=== PATIENT | female | born 1945 | race Caucasian/White ===

== ENCOUNTER 2022-04-16 01:13 | Inpatient (IN) | payer MEDICARE, OTHER ==
[~2022-04-16] VITALS: Ht 167.6 cm; Wt 62.6 kg
--- NOTE | 2022-04-16 01:22 | NUR ---
Patient BIB [facility] ambulance unit 54 from [facility] ER on a 5150 hold for GD/DTS. pt to be medically cleared. pt is in room 5.
[2022-04-16] MEDS ORDERED: ESTR1PAT7 TD (01:31)
[2022-04-16] MEDS ORDERED: LEVO125T8 PO (01:31)
[2022-04-16] MEDS ORDERED: AMLO-212 PO (01:31)
[2022-04-16] MEDS ORDERED: METO25TA6 PO (01:31)
[2022-04-16] MEDS ORDERED: ACET-2154 PO (01:31)
[2022-04-16] MEDS ORDERED: POLY17PO4 PO (01:31)
[2022-04-16] MEDS ORDERED: CETI-90 PO (01:31)
[2022-04-16] MEDS ORDERED: ZALE10CA PO (01:31)
[2022-04-16] MEDS ORDERED: LACT1CAP69 PO (01:31)
[2022-04-16] MEDS ORDERED: MULT-619 PO (01:31)
[2022-04-16] MEDS ORDERED: QUET25TA PO (01:31)
[2022-04-16] MEDS ORDERED: MAG355OR18 PO (01:31)
[2022-04-16] MEDS ORDERED: LISI20TA30 PO (01:31)
[2022-04-16] MEDS ORDERED: ARIP5TAB10 PO (01:31)
[2022-04-16] MEDS ORDERED: ONDA4TAB11 PO (01:31)
--- NOTE | 2022-04-16 01:39 | NUR ---
Dr. Li in room for ROLA.
--- NOTE | 2022-04-16 01:40 | NUR ---
Medically cleared by Dr Li.
[2022-04-16] MEDS ORDERED: POTASSIUM BICARBONATE/CIT AC 25 MEQ TABLET.EFF PO ONE (01:45)
[2022-04-16] MEDS ORDERED: POTASSIUM BICARBONATE/CIT AC 25 MEQ TABLET.EFF ONE (01:49)
--- NOTE | 2022-04-16 02:00 | NUR ---
Report given to JEREMI Calloway U.
--- NOTE | 2022-04-16 02:50 | NUR ---
Transfered to MHU via wheelchair with no distress noted.
[2022-04-16 03:00] VITALS: BP 136/76
--- NOTE | 2022-04-16 03:00 | NUR ---
ADMITTED PATIENT ALERT X 2 TO 3, UNDER THE CARE OF DR RYDER AND DR. GRANT. PATIENT ON 72 HOURS HOLD FOR GD/DTS.. PATIENT WAS BROUGHT TO [place] BY FOR EVAL DUE PATIENT WANDERS AWAY FROM HOME FOR HOURS, BELIGIRANT WITH OTHERS AND HAS NOT SLEPT FOR SEVERAL NIGHTS, IS FEARFUL PATIENT WILL HARM HERSELF. DURING INTERVIEW PATIENT COOPERATIVE, CONTINENT, AMBULATORY, SKIN CLEAR. CONT TO MONITOR.
[2022-04-16] MEDS ORDERED: LORAZEPAM 0.5 MG TABLET PO PRN (03:45)
[2022-04-16] MEDS ORDERED: BLOOD SUGAR DIAGNOSTIC 1 EACH STRIP VI ONE (03:45)
[2022-04-16] MEDS ORDERED: MAGNESIUM HYDROXIDE 30 ML LIQUID UDC PO PRN (03:45)
[2022-04-16] MEDS ORDERED: MAG HYDROX/AL HYDROX/SIMETH 30 ML LIQUID UDC PO PRN ×2 (03:45→16:30)
--- NOTE | 2022-04-16 06:33 | NUR ---
Patient given patients right handbook and advisement at bedside. Paged suction drum drier operator Dr. Jerome to reconcile Meds, given instruction that AM MD will do the reconcillliation.
[2022-04-16 08:00] VITALS: BP 148/66
--- NOTE | 2022-04-16 15:07 | NUR ---
GPS: Nursing Notes: Thought Disorder: Patient is awake and responding to her name, believes that her is trying to get rid of her, believes that there is nothing wrong with her, stated "I hate my doctor that he recommended a shock therapy....I am not a bipolar..", intrusive at times, getting into the nursing station without permission, gets easily irritable when redirected, fast and clear speech, argumentative at times, unable to formulate a viable plan for self care, continue to monitor for safety, continue with treatment plan.
[2022-04-16 16:00] VITALS: BP 166/70
[2022-04-16] MEDS ORDERED: MIRALAX 17 GM POWD.PACK PO PRN (16:30)
[2022-04-16] MEDS: LISINOPRIL 20 MG TABLET PO SCH (16:53)
[2022-04-16] MEDS: AMLODIPINE 5 MG TABLET PO SCH (16:53)
[2022-04-16] MEDS: METOPROLOL TARTRATE 25 MG TABLET PO SCH (16:54)
[2022-04-16] MEDS: DIVALPROEX 250 MG TABLET.DR PO SCH (16:54)
[2022-04-16 20:02] VITALS: BP 127/59
[2022-04-16] MEDS: LORAZEPAM 1 MG TABLET PO PRN (20:57)
[2022-04-16] MEDS: QUETIAPINE FUMARATE 25 MG TABLET PO SCH (20:57)
[2022-04-17] MEDS: ZOLPIDEM 5 MG TABLET PO PRN (01:21)
[2022-04-17 07:30] VITALS: BP 156/71
[2022-04-17 08:11] LABS: THYROID STIMULATING HORMONE 2.244 mIU/mL (0.358-3.740)
[2022-04-17 08:13] LABS: HEMATOCRIT 34.9 % (31.2-41.9); MEAN CORPUSCULAR HEMOGLOBIN 31.2 uug (24.7-32.8); MEAN CORPUSCULAR VOLUME 91.6 fL (75.5-95.3); PLATELET COUNT (AUTO) 375 K/uL (179-408)
[2022-04-17 08:15] LABS: MAGNESIUM 1.6 mg/dL (1.8-2.4); PHOSPHOROUS 4.3 mg/dL (2.5-4.9)
[2022-04-17] MEDS: DIVALPROEX 250 MG TABLET.DR PO SCH ×2 (08:41→16:18)
[2022-04-17] MEDS: LEVOTHYROXINE SODIUM 125 MCG TABLET PO SCH (08:41)
[2022-04-17] MEDS: AMLODIPINE 5 MG TABLET PO SCH ×2 (08:42→22:21)
[2022-04-17 08:43] LABS: BILIRUBIN,TOTAL 0.3 mg/dL (0.2-1.0); CREATININE 0.8 mg/dL (0.6-1.3); POTASSIUM 3.7 mmol/L (3.5-5.1); TOTAL PROTEIN, SERUM 6.1 g/dL (6.4-8.2)
[2022-04-17] MEDS: LISINOPRIL 20 MG TABLET PO SCH (08:43)
[2022-04-17] MEDS: METOPROLOL TARTRATE 25 MG TABLET PO SCH ×2 (08:46→16:18)
[2022-04-17] MEDS: ACIDOPHILUS/BULGARICUS CHEW TAB PO SCH (08:51)
[2022-04-17] MEDS: MULTIVIT, IRON, MIN NO. 8, FA TABLET PO SCH (08:51)
[2022-04-17] MEDS ORDERED: CETIRIZINE HCL 10 MG TABLET PO PRN (09:00)
[2022-04-17] MEDS ORDERED: MAGNESIUM OXIDE 400 MG TABLET PO ONE (10:00)
[2022-04-17 16:00] VITALS: BP 156/77
[2022-04-17] MEDS: LORAZEPAM 1 MG TABLET PO PRN (16:18)
--- NOTE | 2022-04-17 16:19 | NUR ---
The patient has been intrusive, unaware of physical boundaries with staff and constantly touching other patients. Continuing to redirect and reorient the patient to the reality of the situation. B/p is being monitored and treated as needed. Safety stratiges are in place. Unit rules and appropriate behavior is reinforced.
[2022-04-17 20:03] VITALS: BP 162/91
[2022-04-17] MEDS: QUETIAPINE FUMARATE 25 MG TABLET PO SCH (20:22)
[2022-04-18] MEDS: LEVOTHYROXINE SODIUM 125 MCG TABLET PO SCH (06:12)
[2022-04-18 07:30] VITALS: BP 153/108
[2022-04-18] MEDS: DIVALPROEX 250 MG TABLET.DR PO SCH ×2 (09:36→18:26)
[2022-04-18] MEDS: AMLODIPINE 5 MG TABLET PO SCH ×2 (09:36→20:57)
[2022-04-18] MEDS: LISINOPRIL 20 MG TABLET PO SCH (09:38)
[2022-04-18] MEDS: METOPROLOL TARTRATE 25 MG TABLET PO SCH ×2 (09:38→18:27)
[2022-04-18] MEDS: ACIDOPHILUS/BULGARICUS CHEW TAB PO SCH (09:49)
[2022-04-18] MEDS: MULTIVIT, IRON, MIN NO. 8, FA TABLET PO SCH (09:49)
[2022-04-18] MEDS: PROTEIN SUPPLEMENT (PROSTAT) 30 ML LIQUID PO SCH (10:30)
--- NOTE | 2022-04-18 12:10 | NUR ---
NOLVIA Family Contact: NOLVIA spoke with pt's , Dash [phone] in person during visitation hours regarding pt's treatment and discharge plan. Dash stated he is grateful for the teams help with pt's treatment and discussed pt's confirmed discharge plan to return home upon discharge under Dash's care.
--- NOTE | 2022-04-18 12:16 | NUR ---
NOLVIA Family Contact: NOLVIA spoke with pt's and DPDash MEZA [phone] in person who stated that pt will discharge home with him located at [address] [place] [address] ([phone]) as long as pt's psychiatrist, Dr. Maria clears the pt to continue care at home upon discharge. Dash stated he is also agreeable for pt to continue care at a [place] [facility] facility if Dr. Maria recommends it for continuation of care. Dash is aware and agreeable with the Doctor recommended treatment plan.
[2022-04-18] MEDS: ENSURE ENLIVE (VAN) 240 ML LIQUID PO SCH (12:43)
--- NOTE | 2022-04-18 13:06 | NUR ---
Gps/Tank Calibrator- Compliant with her routine am meds. conversant, needy , and wants request to be executed right away. came in to visit, but was able to stay only 30 minutes. Patient kept requesting to have patio door opened for her .
--- NOTE | 2022-04-18 15:27 | NUR ---
Gps/Sales Promotion Representative- Dr Luna (Neuro) was called , to follow up on a consult that was done 2 days ago, will see patient tomorrow .
[2022-04-18 16:00] VITALS: BP 171/70
--- NOTE | 2022-04-18 16:00 | NUR ---
Gps/Block Mechanic- Patient making multiple request, while standing by the Nurses station, patient urinated , on the floor claimed it was accident , she just woke up. Patient requested to have another shower, does not remember showering this am.
--- NOTE | 2022-04-18 16:22 | NUR ---
NOLVIA Initial Discharge Note: Pt currently resides at home with her , Dsah [phone] located at [address] [place] [address] ([phone]). Dash stated if the pt's MD clears the pt to continue care at home upon discharge, Dash will provide transportation and help take care of the pt with a sprinkler inspector as well. Dash stated if recommends a alf facility, Dash is agreeable with that plan as well. NOLVIA will continue to work with pt, family and MD to ensure a safe and proper discharge plan.
--- NOTE | 2022-04-18 16:24 | NUR ---
Firearms Report: Gi Technician completed and submitted a [employer] firearms report for 5150 a danger to herself and grave disability certifications. A copy of report has been placed in patient chart.
[2022-04-18 20:29] VITALS: BP 170/80
[2022-04-18] MEDS: QUETIAPINE FUMARATE 100 MG TABLET PO SCH (20:57)
[2022-04-18] MEDS ORDERED: QUETIAPINE FUMARATE 25 MG TABLET PO SCH (21:00)
[2022-04-18] MEDS: ZOLPIDEM 5 MG TABLET PO PRN (21:50)
--- NOTE | 2022-04-19 04:08 | NUR ---
Patient alert oriented, stayed in her room most of the evening, cooperative with med regimen and care, patient socialized and pleasant to staff and other patient, complain of inability to sleep, given sleeping meds as ordered with effective results, episode of elevated BP but asymptomatic, no nausea no vomiting, no headache/dizzines, will recheck bp again, cont to monitor.
[2022-04-19] MEDS: LEVOTHYROXINE SODIUM 125 MCG TABLET PO SCH (06:04)
[2022-04-19 07:30] VITALS: BP 136/76
[2022-04-19] MEDS: PROTEIN SUPPLEMENT (PROSTAT) 30 ML LIQUID PO SCH (08:00)
[2022-04-19] MEDS: MULTIVIT, IRON, MIN NO. 8, FA TABLET PO SCH (08:39)
[2022-04-19] MEDS: METOPROLOL TARTRATE 25 MG TABLET PO SCH ×2 (08:40→16:36)
[2022-04-19] MEDS: AMLODIPINE 5 MG TABLET PO SCH ×2 (08:41→20:08)
[2022-04-19] MEDS: LISINOPRIL 20 MG TABLET PO SCH (08:42)
[2022-04-19] MEDS: ENSURE ENLIVE (VAN) 240 ML LIQUID PO SCH (08:43)
[2022-04-19] MEDS: DIVALPROEX 250 MG TABLET.DR PO SCH ×2 (08:43→16:35)
[2022-04-19] MEDS: ACIDOPHILUS/BULGARICUS CHEW TAB PO SCH (08:44)
--- NOTE | 2022-04-19 15:46 | NUR ---
Gps/Liquified Natural Gas Specialist- Had been in and out of her group tx. Gets needy, demanding needs. Patient was noted in the shower room all naked was preparing self to take a shower again , pt. was reminded she already had shower this am, patient claimed can take shower anytime. Setting limit provided .
[2022-04-19 16:00] VITALS: BP 140/70
--- NOTE | 2022-04-19 18:00 | NUR ---
Gps/Ceramic Designer- Called Dash() left message, informed him of the Court hearing scheduled for friday with the possibility of discharge
[2022-04-19 19:58] VITALS: BP 167/57
[2022-04-19] MEDS: QUETIAPINE FUMARATE 100 MG TABLET PO SCH (20:08)
[2022-04-20] MEDS: LEVOTHYROXINE SODIUM 125 MCG TABLET PO SCH (06:04)
[2022-04-20] MEDS: PROTEIN SUPPLEMENT (PROSTAT) 30 ML LIQUID PO SCH (08:00)
[2022-04-20] MEDS: DIVALPROEX 250 MG TABLET.DR PO SCH ×2 (08:05→16:31)
[2022-04-20] MEDS: MULTIVIT, IRON, MIN NO. 8, FA TABLET PO SCH (08:05)
[2022-04-20] MEDS: ACIDOPHILUS/BULGARICUS CHEW TAB PO SCH (08:05)
[2022-04-20] MEDS: ENSURE ENLIVE (VAN) 240 ML LIQUID PO SCH (08:06)
[2022-04-20] MEDS: METOPROLOL TARTRATE 25 MG TABLET PO SCH ×2 (08:06→16:31)
[2022-04-20] MEDS: AMLODIPINE 5 MG TABLET PO SCH ×2 (08:07→20:03)
[2022-04-20] MEDS: LISINOPRIL 20 MG TABLET PO SCH (08:07)
[2022-04-20 08:13] VITALS: BP 138/51
[2022-04-20 08:30] LABS: HEMATOCRIT 38.2 % (31.2-41.9); MEAN CORPUSCULAR HEMOGLOBIN 30.6 uug (24.7-32.8); MEAN CORPUSCULAR VOLUME 91.1 fL (75.5-95.3); PLATELET COUNT (AUTO) 322 K/uL (179-408)
[2022-04-20 08:46] LABS: MAGNESIUM 1.8 mg/dL (1.8-2.4); PHOSPHOROUS 4.3 mg/dL (2.5-4.9); POTASSIUM 3.9 mmol/L (3.5-5.1)
--- NOTE | 2022-04-20 15:39 | NUR ---
Gps/It Corporate Recruiter- Had been compliant with her routine medications, forgetful, redirected from time to time, gets intrusive , interacting with her peers .Participated in her group tx.
[2022-04-20 16:35] VITALS: BP 122/61
[2022-04-20 20:00] VITALS: BP 146/82
[2022-04-20] MEDS: QUETIAPINE FUMARATE 100 MG TABLET PO SCH (20:02)
[2022-04-20] MEDS: ACETAMINOPHEN 325 MG TABLET PO PRN (21:55)
[2022-04-20] MEDS: LORAZEPAM 1 MG TABLET PO PRN (21:55)
[2022-04-21] MEDS: LEVOTHYROXINE SODIUM 125 MCG TABLET PO SCH (06:25)
--- NOTE | 2022-04-21 06:27 | NUR ---
Patient continues to be intrusive and overly touchy with peers. Holding their hands and in their business. Inappropriate by telling everyone , including this engineering writer " I love you " after each conversation. The patient is forgetful and has poor situational awareness. Total sleep hours were 6.15 . Safety stratiges are in place at this time. Reorientation provided often.
[2022-04-21 07:30] VITALS: BP 115/62
[2022-04-21] MEDS: PROTEIN SUPPLEMENT (PROSTAT) 30 ML LIQUID PO SCH (08:00)
[2022-04-21] MEDS: ACIDOPHILUS/BULGARICUS CHEW TAB PO SCH (08:22)
[2022-04-21] MEDS: MULTIVIT, IRON, MIN NO. 8, FA TABLET PO SCH (08:22)
[2022-04-21] MEDS: DIVALPROEX 250 MG TABLET.DR PO SCH ×2 (08:23→17:04)
[2022-04-21] MEDS: LISINOPRIL 20 MG TABLET PO SCH (08:23)
[2022-04-21] MEDS: AMLODIPINE 5 MG TABLET PO SCH ×2 (08:24→20:53)
[2022-04-21] MEDS: ENSURE ENLIVE (VAN) 240 ML LIQUID PO SCH (08:25)
[2022-04-21] MEDS: METOPROLOL TARTRATE 25 MG TABLET PO SCH ×2 (08:25→17:05)
[2022-04-21 10:20] LABS: HEMATOCRIT 36.1 % (31.2-41.9); MEAN CORPUSCULAR VOLUME 92.4 fL (75.5-95.3); PLATELET COUNT (AUTO) 294 K/uL (179-408)
[2022-04-21 10:23] LABS: *RHEUMATOID FACTOR SCREEN NEGATIVE (NEGATIVE)
[2022-04-21 11:50] LABS: ALANINE AMINOTRANSFERASE 13 U/L (14-59); ALKALINE PHOSPHATASE 51 U/L (50-136); ASPARTATE AMINOTRANSFERASE < 5 U/L (15-37); BILIRUBIN,TOTAL 0.4 mg/dL (0.2-1.0); CARBON DIOXIDE 31 mmol/L (21-32); CHLORIDE 104 mmol/L (98-107); CREATININE 0.9 mg/dL (0.6-1.3); GLUCOSE 123 mg/dL (74-106); LACTATE DEHYDROGENASE 147 U/L (81-234); POTASSIUM 3.7 mmol/L (3.5-5.1); TOTAL PROTEIN, SERUM 6.3 g/dL (6.4-8.2); UREA NITROGEN, BLOOD 18 mg/dL (7-18)
[2022-04-21] MEDS: ACETAMINOPHEN 325 MG TABLET PO PRN ×2 (14:38→21:32)
--- NOTE | 2022-04-21 15:34 | NUR ---
Gps/Corrections Specialist- Urine specimen collected , set to lab.
[2022-04-21 16:00] VITALS: BP 161/63
[2022-04-21 16:17] LABS: *BILIRUBIN,URIN NEGATIVE (NEGATIVE); *BLOOD, URINE NEGATIVE (NEGATIVE); *CLARITY,URINE CLEAR (CLEAR); *COLOR,URINE YELLOW (YELLOW); *KETONES,URINE NEGATIVE (NEGATIVE); *UROBILINOGEN,URINE 0.2 E.U./dl (NORMAL); LEUKOCYTE ESTERASE ,URINE NEGATIVE (NEGATIVE); NITRITE, URINE NEGATIVE (NEGATIVE); UGLUCOSE NEGATIVE (NEGATIVE)
--- NOTE | 2022-04-21 16:49 | NUR ---
Gps/Office Machine Servicer- Anali from [facility] came in to see patient, per Husbands' request to give her communion , was able to stay 10 minutes ,prayed with patient.
[2022-04-21 20:17] VITALS: BP 165/77
[2022-04-21] MEDS: QUETIAPINE FUMARATE 100 MG TABLET PO SCH (20:54)
[2022-04-21] MEDS: LORAZEPAM 1 MG TABLET PO PRN (21:32)
[2022-04-22] MEDS: LEVOTHYROXINE SODIUM 125 MCG TABLET PO SCH (06:23)
--- NOTE | 2022-04-22 06:24 | NUR ---
Patient slept 7.15 hours. At the start of the shift, the patient continued to be intrusive with the other patients. [place] touchy and unaware of personal boundaries. When asked not to touch the other patients, she would become angry and condescending. Labile mood noted. Safety Stratiges in place . Patient is forgetful and often forgets the situation of being here in the hospital and why. Reorientation provided when needed.
[2022-04-22 07:46] VITALS: BP 160/73
[2022-04-22 08:06] LABS: *IMMUNOGLOBULIN G, SERUM 712 mg/dL (586-1602); IMMUNOGLOBULIN A, SERUM 94 mg/dL (64-422); IMMUNOGLOBULIN M, SERUM 71 mg/dL (26-217)
[2022-04-22] MEDS: MULTIVIT, IRON, MIN NO. 8, FA TABLET PO SCH (08:48)
[2022-04-22] MEDS: AMLODIPINE 5 MG TABLET PO SCH ×2 (08:48→20:51)
[2022-04-22] MEDS: DIVALPROEX 250 MG TABLET.DR PO SCH ×2 (08:48→16:46)
[2022-04-22] MEDS: LISINOPRIL 20 MG TABLET PO SCH (08:49)
[2022-04-22] MEDS: METOPROLOL TARTRATE 25 MG TABLET PO SCH ×2 (08:49→16:47)
[2022-04-22] MEDS: ACIDOPHILUS/BULGARICUS CHEW TAB PO SCH (08:49)
[2022-04-22] MEDS: ACETAMINOPHEN 325 MG TABLET PO PRN (08:58)
[2022-04-22] MEDS: PROTEIN SUPPLEMENT (PROSTAT) 30 ML LIQUID PO SCH (08:59)
[2022-04-22] MEDS: ENSURE ENLIVE (VAN) 240 ML LIQUID PO SCH (08:59)
--- NOTE | 2022-04-22 10:20 | NUR ---
NOLVIA Family Contact: NOLVIA contacted pt's , Dash [phone] and left a voicemail for a call back regarding pt's hearing today at 12:30pm. NOLVIA stated that pt may be released from her hold today and ready for discharge per pt's psychiatrist, Dr. Maria. Per this NOLVIA's discussion with Dash last week, pt will return home with her under his care located at [address] [place] [address] ([phone]).
--- NOTE | 2022-04-22 11:00 | NUR ---
14 day hold [facility] done ,on hold for GD.
[2022-04-22 15:06] LABS: A/G RATIO 1.1 (0.7-1.7); ALPHA-1-GLOBULIN 0.3 g/dL (0.0-0.4); ALPHA-2-GLOBULIN 0.9 g/dL (0.4-1.0); GAMMA GLOBULIN 0.7 g/dL (0.4-1.8); GLOBULIN, TOTAL 2.8 g/dL (2.2-3.9); M-SPIKE Not Observed g/dL (Not Observed)
[2022-04-22 16:24] VITALS: BP 165/71
[2022-04-22 19:57] VITALS: BP 145/66
[2022-04-22] MEDS: LORAZEPAM 1 MG TABLET PO PRN (20:51)
[2022-04-22] MEDS: QUETIAPINE FUMARATE 100 MG TABLET PO SCH (20:52)
[2022-04-23] MEDS: LEVOTHYROXINE SODIUM 125 MCG TABLET PO SCH (06:16)
--- NOTE | 2022-04-23 06:17 | NUR ---
Received patient in the day room at the start of the shift, socializing , speech tangental. As the night went on, the patient became more confused and forgetful . A few times in the night , the patient got up completely disoriented and soaked in urine. Reorientation and reassurance provided. Safety Stratiges are in place.
[2022-04-23 07:30] VITALS: BP_SYST 102; BP_SYST 161; BP_DIAS 66; BP_DIAS 67
[2022-04-23] MEDS: DIVALPROEX 250 MG TABLET.DR PO SCH ×2 (08:32→17:31)
[2022-04-23] MEDS: ACIDOPHILUS/BULGARICUS CHEW TAB PO SCH (08:32)
[2022-04-23] MEDS: METOPROLOL TARTRATE 25 MG TABLET PO SCH ×2 (08:34→17:33)
[2022-04-23] MEDS: AMLODIPINE 5 MG TABLET PO SCH ×2 (08:34→20:56)
[2022-04-23] MEDS: MULTIVIT, IRON, MIN NO. 8, FA TABLET PO SCH (08:34)
[2022-04-23] MEDS: LISINOPRIL 20 MG TABLET PO SCH (08:35)
[2022-04-23] MEDS: ENSURE ENLIVE (VAN) 240 ML LIQUID PO SCH (08:35)
[2022-04-23] MEDS: PROTEIN SUPPLEMENT (PROSTAT) 30 ML LIQUID PO SCH (08:35)
[2022-04-23 11:06] LABS: *ANTI-SCLERODERMA-70 AB <0.2 AI (0.0-0.9); *SJOGREN'S ANTI-SS-A <0.2 AI (0.0-0.9); *SJOGREN'S ANTI-SS-B <0.2 AI (0.0-0.9); *SMITH ANTIBODIES <0.2 AI (0.0-0.9); ANTI-DNA(DS) AB, QN <1 IU/mL (0-9)
[2022-04-23] MEDS: ACETAMINOPHEN 325 MG TABLET PO PRN (11:09)
--- NOTE | 2022-04-23 15:36 | NUR ---
Received patient sleeping in her room. A/O X 2 to person. Pt. is intrusive "I'll take care of this patient" "What's his problem? Why is he upset?" Pt. is confused, disorganized, compliant with medications. Pt. is encourage to verbalize concerns. Fall and safety precautions implemented.
[2022-04-23 15:48] VITALS: BP 144/65
--- NOTE | 2022-04-23 20:30 | NUR ---
RECEIVED PATIENT IN HER ROOM SITTING IN HER BED, SHE IS NOTED A/O X 3 ABLE TO VERBALIZED HER FEELINGS. PATIENT IS CALM AND PLEASANT UPON APPROACHED, PATIENT IS AWARE OF HER INCOMING DISCHARGED FOR TOMORROW MORNING, SHE WILL BE DISCHARGE TO HOME WITH HER . SHE IS NOTED GOAL ORIENTED. PATIENT IN NO DISTRESS. HER V/S ARE STABLE, SHE IS REASSURED FOR HER SAFETY. SAFETY AND FALL PRECAUTIONS ARE IN PLACE. WILL CONTINUE TO MONITOR.
[2022-04-23] MEDS: QUETIAPINE FUMARATE 100 MG TABLET PO SCH (20:56)
[2022-04-23 20:57] VITALS: BP 142/68
[2022-04-24] MEDS: LEVOTHYROXINE SODIUM 125 MCG TABLET PO SCH (06:48)
[2022-04-24 07:55] VITALS: BP 149/67
[2022-04-24] MEDS: METOPROLOL TARTRATE 25 MG TABLET PO SCH (09:02)
[2022-04-24] MEDS: LISINOPRIL 20 MG TABLET PO SCH (09:02)
[2022-04-24] MEDS: DIVALPROEX 250 MG TABLET.DR PO SCH (09:02)
[2022-04-24 09:03] VITALS: BP 149/67
[2022-04-24] MEDS: AMLODIPINE 5 MG TABLET PO SCH (09:03)
[2022-04-24] MEDS: MULTIVIT, IRON, MIN NO. 8, FA TABLET PO SCH (09:03)
[2022-04-24] MEDS: ACIDOPHILUS/BULGARICUS CHEW TAB PO SCH (09:03)
[2022-04-24] MEDS: ENSURE ENLIVE (VAN) 240 ML LIQUID PO SCH (09:04)
[2022-04-24] MEDS: PROTEIN SUPPLEMENT (PROSTAT) 30 ML LIQUID PO SCH (09:04)
--- NOTE | 2022-04-24 11:00 | NUR ---
Received patient sleeping in her room. A/O X 2 to person. Pt. is intrusive, forgetful, confused at times, cooperative with care, and compliant with medications. Reassurance given. Fall and safety precautions implemented.
--- NOTE | 2022-04-24 14:00 | NUR ---
NOLVIA Discharge Note: Pt will be discharged to Home located at [address] [place] [address] via pts husbands private vehicle transportation to home at 3PM. NOLVIA spoke with pts , Dash ([phone]) who states he is ready to accept the pt back home today. Pt is aware and agreeable with the discharge plan. Peter is aware and agreeable with the discharge plan. Pt is alert and oriented x4 and is unable to plan for self-care at this time. However, pt is willing to accept care by her at home. Pt denies any suicidal and homicidal ideation. Pt will follow-up with this [facility] outpatient psychiatrist referral, Dr. Montiel located at [address] [facility] [address] [facility] [address], [place] [address] ([phone]) on May 01, 2022, at 2PM. Pt will follow-up with her Primary Physician, Dr. Pereira. Pt presents with calm and congruent affect. PHARMACY: [facility] located at [address] [place] [address] ([phone]). NOLVIA provided [facility] teletherapy located at [address] [place] [phone] via teletherapy ([phone]) as an alternative option for the pt. Peter and pt are aware and agreeable with the referrals. In addition, NOLVIA provided home health referrals for the family for continuation of care as needed such as: [facility] ([phone]) located at [address] [place] [address]; [facility] ([phone]); and [facility] ([phone]).
--- NOTE | 2022-04-24 14:34 | NUR ---
Received orders to discharge this patient to home by 's vehicle transportation. Patient is agreeable with discharge plans and signed all discharge documents. All belongings and valuables were returned to patient. Patient left the unit at 14:15. Emotional support provided. Fall and safety precautions implemented.
== END 2022-04-24 14:15 | disposition home or self-care (01) | DRG 885 ==
LOC: ER 01:24 → GPS 01:30
PROVIDERS: ADMIT Psychiatry & Neurology Psychiatry; ATTEND Internal Medicine
DX: F31.9 Bipolar disorder, unspecified (principal); E03.9 Hypothyroidism, unspecified; Z79.890 Hormone replacement therapy; E78.5 Hyperlipidemia, unspecified; E83.42 Hypomagnesemia; E83.52 Hypercalcemia; E87.5 Hyperkalemia; E88.09 Other disorders of plasma-protein metabolism, not elsewhere classified; F03.90 Unspecified dementia, unspecified severity, without behavioral disturbance, psychotic disturbance, mood disturbance, and anxiety; F17.210 Nicotine dependence, cigarettes, uncomplicated; Z90.710 Acquired absence of both cervix and uterus; I10 Essential (primary) hypertension; D72.829 Elevated white blood cell count, unspecified; I34.1 Nonrheumatic mitral (valve) prolapse
CPT/HCPCS: 36415; 71046; 80164; 82652; 82784; 83615; 83735; 83970; 84100; 84155; 84165; 84443; 85025; 86038; 86140; 86334; 86430; A4663; J3490